=== PATIENT | male | born 1990 | race Native Hawaiian/Other Pacific Islander ===

== ENCOUNTER 2017-06-23 02:24 | Emergency (ER) | payer OTHER ==
[2017-06-23 02:35] VITALS: RESP 16
[2017-06-23] MEDS ORDERED: DIPH,PERTUS(ACELL)TETVAC-LF 0.5 ML VIAL IM ONE (02:44)
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
[2017-06-23 04:08] VITALS: BP 128/69; PULSE 72; TEMP 97.9
--- NOTE | 2017-06-23 04:44 | XR ---
EXAMINATION TYPE: Chest and left RIBS DATE OF EXAM: 06/23/2017 COMPARISON: NONE HISTORY: Left-sided rib pain TECHNIQUE: 6 views FINDINGS: Heart and mediastinum are normal. Lungs are clear of infiltrate. There is no sign of pleura l effusion or pneumothorax. The left ribs appear intact. I see no rib fracture. IMPRESSION: There is a slight thoracic dextroscoliosis. Otherwise normal chest. Normal left ribs.
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
--- NOTE | 2017-06-23 04:44 | CT ---
History headache. Neck pain. Comparison none. TECHNIQUE: Multiple axial sections were obtained of the brain with no contrast. Axial sections were obtained from the skull base to T1 vertebra with no contrast. FINDINGS: Ventricles and sulci appear normal. There is no mass effect nor midline shift. There is no sign of in tracranial hemorrhage. The calvarium is intact. There is significant soft tissue swelling over the fr ontal bone and more on the right side. I see no orbital fracture. There is soft tissue swelling of the scalp over the occipital bone. The cervical vertebra have normal spacing and alignment. Posterior elements are intact. Facet joints appear normal. There is no sign of a cervical spine fracture. The skull base appears intact. CONCLUSION: No intracranial abnormality. Frontal and occipital scalp hematomas. Negative CT scan of the cervical spine.
--- NOTE | 2017-06-23 08:52 | XR ---
EXAMINATION TYPE: XR Hip LT and AP Pelvis , ONE VIEW DATE OF EXAM ORDERED: 06/23/2017 HISTORY: Pain. COMPARISON: None. FINDINGS: Osseous structures about the pelvis are normal. No fracture or dislocation is seen. IMPRESSION: NO ACUTE OSSEOUS LESION.
--- NOTE | 2017-06-23 08:55 | XR ---
EXAMINATION TYPE: XR elbow complete RT , 3 VIEWS DATE OF EXAM ORDERED: 06/23/2017 HISTORY: Pain. COMPARISON: None. FINDINGS: No fracture, dislocation or joint effusion is seen. There is an olecranon spur. IMPRESSION: NO ACUTE OSSEOUS LESION.
--- NOTE | 2017-06-23 08:55 | XR ---
EXAMINATION TYPE: XR ribs LT w pa chest xray , 6 VIEWS DATE OF EXAM ORDERED: 06/23/2017 HISTORY: Pain. COMPARISON: None. FINDINGS: The lungs are overinflated but clear. Pleural spaces are clear. The heart is not enlarged. No displaced rib fracture is seen. No pneumothorax is evident. IMPRESSION: COPD.
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
== END 2017-06-23 04:08 | disposition home or self-care (01) ==
LOC: EC 02:24
DX: S06.0X0A Concussion without loss of consciousness, initial encounter (principal); S61.451A Open bite of right hand, initial encounter; S61.234A Puncture wound without foreign body of right ring finger without damage to nail, initial encounter; S20.212A Contusion of left front wall of thorax, initial encounter; S70.02XA Contusion of left hip, initial encounter; S50.01XA Contusion of right elbow, initial encounter; S00.83XA Contusion of other part of head, initial encounter; F10.129 Alcohol abuse with intoxication, unspecified; F17.200 Nicotine dependence, unspecified, uncomplicated; Z88.0 Allergy status to penicillin; Z88.5 Allergy status to narcotic agent; Z23 Encounter for immunization; Y04.1XXA Assault by human bite, initial encounter; Y04.0XXA Assault by unarmed brawl or fight, initial encounter
CPT/HCPCS: 70450; 70486; 72125; 73502; 90471; 90715; 99284

== ENCOUNTER 2020-12-05 19:56 | Observation (INO) | payer OTHER ==
[2020-12-05] MEDS ORDERED: HYDROmorphone 0.5 MG/0.5 ML SYRINGE IVP STA (20:19)
[2020-12-05] MEDS ORDERED: SODIUM CHLORIDE 0.9% 1,000 ML IV STA (20:19)
[2020-12-05] MEDS ORDERED: ONDANSETRON 4 MG/2 ML VIAL IVP STA (20:19)
--- NOTE | 2020-12-05 20:28 | ED ---
Abdominal Pain HPI - General Source: patient, family, EMS, RN notes reviewed Mode of arrival: EMS Limitations: no limitations <Wesley Hood - Last Filed: 12/05/20 22:19> <Hanna Loving - Last Filed: 12/10/20 14:40> - General Chief Complaint: Abdominal Pain Stated Complaint: Abd Pain Time Seen by Provider: 12/05/20 20:09 - History of Present Illness Initial Comments: This a 30-year-old male presents emergency with chief complaint of abdominal pain. Patient states his started a few R is ago. Patient states that he had a leave work early because of the pain in his abdomen. Patient states she started driving felt lightheaded and dizzy. Patient states he's had no prior abdominal surgeries no prior abdominal or GI issues. Patient has no dysuria no hematuria he does have slight nausea without vomiting no fevers or chills no cough or URI symptoms. (Wesley Hood) - Related Data Previous Rx's Medication Instructions Recorded Levofloxacin [Levaquin] 500 mg PO DAILY 10 Days #10 tab 12/07/20 Allergies Allergy/AdvReac Type Severity Reaction Status Date / Time ampicillin Allergy Unknown Verified 12/05/20 22:12 Penicillins Allergy Rash/Hives Verified 12/05/20 22:12 codeine AdvReac Nausea & Verified 12/05/20 22:12 Vomiting Review of Systems ROS Other: All systems not noted in ROS Statement are negative. <Wesley Hood - Last Filed: 12/05/20 22:19> ROS Other: All systems not noted in ROS Statement are negative. <Hanna Loving - Last Filed: 12/10/20 14:40> ROS Statement: Those systems with pertinent positive or pertinent negative responses have been documented in the HPI. Past Medical History Past Medical History: Asthma History of Any Multi-Drug Resistant Organisms: None Reported Additional Past Surgical History / Comment(s): hemmorhoid surgery Past Psychological History: No Psychological Hx Reported Smoking Status: Current every day smoker Past Alcohol Use History: Occasional Past Drug Use History: Marijuana <Wesley Hood - Last Filed: 12/05/20 22:19> General Exam Limitations: no limitations General appearance: alert, in no apparent distress Head exam: Present: atraumatic, normocephalic, normal inspection Eye exam: Present: normal appearance, PERRL, EOMI. Absent: scleral icterus, conjunctival injection, periorbital swelling ENT exam: Present: normal exam, mucous membranes moist Neck exam: Present: normal inspection, full ROM. Absent: tenderness, meningismu s, lymphadenopathy Respiratory exam: Present: normal lung sounds bilaterally. Absent: respiratory distress, wheezes, rales, rhonchi, stridor Cardiovascular Exam: Present: regular rate, normal rhythm, normal heart sounds. Absent: systolic murmur, diastolic murmur, rubs, gallop, clicks GI/Abdominal exam: Present: soft, tenderness, normal bowel sounds. Absent: distended, guarding, rebound, rigid Back exam: Absent: CVA tenderness (R), CVA tenderness (L) Neurological exam: Present: alert Skin exam: Present: warm, dry, intact, normal color. Absent: rash <Wesley Hood - Last Filed: 12/05/20 22:19> Course Vital Signs 12/05/20 12/05/20 12/05/20 20:06 20:54 22:34 Temperature 97.4 F L 97.5 F L Pulse Rate 71 77 62 Pulse Rate [ Right Lateral] Respiratory 20 22 22 Rate Blood Pressure 141/82 137/78 127/66 Blood Pressure [Right Radial Artery] O2 Sat by Pulse 100 98 97 Oximetry 12/05/20 12/06/20 12/06/20 23:00 04:40 07:00 Temperature 97.7 F 97.9 F Pulse Rate 69 56 L Pulse Rate [ 55 L Right Lateral] Respiratory 22 16 17 Rate Blood Pressure 124/73 126/79 Blood Pressure 124/68 [Right Radial Artery] O2 Sat by Pulse 97 97 97 Oximetry Medical Decision Making - Lab Data Result diagrams: 12/05/20 20:21 12/05/20 20:21 <Wesley Hood - Last Filed: 12/05/20 22:19> - Lab Data Result diagrams: 12/07/20 08:46 12/05/20 20:21 <Hanna Loving - Last Filed: 12/10/20 14:40> - Medical Decision Making 30-year-old presented for abdominal pain. Patient has a temperature changes and fluid collection on CT possible early appendicitis. Patient be admitted for IV antibiotics case discussed with Dr. Nava. (Wesley Hood) I was available for consultation in the emergency department. The history and physical exam were done by the midlevel provider. I was consulted for this patients care. I reviewed the case with the midlevel provider and based on their presentation of the patient, I agree with the assessment, medical decision making and plan of care as documented. Chart was dictated using [employer] dictation software. Attempts were made to correct any dictation errors however some typographical errors may persist. Patient was seen during a national state of emergency due to the Covid-19 pandemic. (Hanna Loving) - Lab Data Lab Results 12/05/20 12/05/20 12/05/20 Range/Units 20:21 20:21 20:21 WBC 8.2 (3.8-10.6) k/uL RBC 4.35 (4.30-5.90) m/uL Hgb 14.5 (13.0-17.5) gm/dL Hct 41.8 (39.0-53.0) % MCV 96.1 (80.0-100.0) fL MCH 33.4 (25.0-35.0) pg MCHC 34.7 (31.0-37.0) g/dL RDW 14.5 (11.5-15.5) % Plt Count 255 (150-450) k/uL MPV 7.9 Neutrophils % 65 % Lymphocytes % 23 % Monocytes % 6 % Eosinophils % 2 % Basophils % 1 % Neutrophils # 5.3 (1.3-7.7) k/uL Lymphocytes # 1.9 (1.0-4.8) k/uL Monocytes # 0.5 (0-1.0) k/uL Eosinophils # 0.1 (0-0.7) k/uL Basophils # 0.1 (0-0.2) k/uL Sodium 136 L (137-145) mmol/L Potassium 3.7 (3.5-5.1) mmol/L Chloride 105 (98-107) mmol/L Carbon Dioxide 24 (22-30) mmol/L Anion Gap 7 mmol/L BUN 18 (9-20) mg/dL Creatinine 0.76 (0.66-1.25) mg/dL Est GFR (CKD-EPI)AfAm >90 (>60 ml/min/1.73 sqM) Est GFR (CKD-EPI)NonAf >90 (>60 ml/min/1.73 sqM) Glucose 110 H (74-99) mg/dL Plasma Lactic Acid Jose (0.7-2.0) mmol/L Calcium 9.5 (8.4-10.2) mg/dL Total Bilirubin 0.8 (0.2-1.3) mg/dL AST 37 (17-59) U/L ALT 26 (4-49) U/L Alkaline Phosphatase 60 (38-126) U/L Total Protein 6.3 (6.3-8.2) g/dL Albumin 4.3 (3.5-5.0) g/dL Lipase 162 (23-300) U/L Urine Color Light Yellow Urine Appearance Clear (Clear) Urine pH 7.5 (5.0-8.0) Ur Specific [place] 1.031 (1.001-1.035) Urine Protein Negative (Negative) Urine Glucose (UA) Negative (Negative) Urine Ketones Negative (Negative) Urine Blood Negative (Negative) Urine Nitrite Negative (Negative) Urine Bilirubin Negative (Negative) Urine Urobilinogen <2.0 (<2.0) mg/dL Ur Leukocyte Esterase Negative (Negative) 12/05/20 Range/Units 20:21 WBC (3.8-10.6) k/uL RBC (4.30-5.90) m/uL Hgb (13.0-17.5) gm/dL Hct (39.0-53.0) % MCV (80.0-100.0) fL MCH (25.0-35.0) pg MCHC (31.0-37.0) g/dL RDW (11.5-15.5) % Plt Count (150-450) k/uL MPV Neutrophils % % Lymphocytes % % Monocytes % % Eosinophils % % Basophils % % Neutrophils # (1.3-7.7) k/uL Lymphocytes # (1.0-4.8) k/uL Monocytes # (0-1.0) k/uL Eosinophils # (0-0.7) k/uL Basophils # (0-0.2) k/uL Sodium (137-145) mmol/L Potassium (3.5-5.1) mmol/L Chloride (98-107) mmol/L Carbon Dioxide (22-30) mmol/L Anion Gap mmol/L BUN (9-20) mg/dL Creatinine (0.66-1.25) mg/dL Est GFR (CKD-EPI)AfAm (>60 ml/min/1.73 sqM) Est GFR (CKD-EPI)NonAf (>60 ml/min/1.73 sqM) Glucose (74-99) mg/dL Plasma Lactic Acid Jose 1.5 (0.7-2.0) mmol/L Calcium (8.4-10.2) mg/dL Total Bilirubin (0.2-1.3) mg/dL AST (17-59) U/L ALT (4-49) U/L Alkaline Phosphatase (38-126) U/L Total Protein (6.3-8.2) g/dL Albumin (3.5-5.0) g/dL Lipase (23-300) U/L Urine Color Urine Appearance (Clear) Urine pH (5.0-8.0) Ur Specific [place] (1.001-1.035) Urine Protein (Negative) Urine Glucose (UA) (Negative) Urine Ketones (Negative) Urine Blood (Negative) Urine Nitrite (Negative) Urine Bilirubin (Negative) Urine Urobilinogen (<2.0) mg/dL Ur Leukocyte Esterase (Negative) Disposition <Wesley Hood - Last Filed: 12/05/20 22:19> <Hanna Loving - Last Filed: 12/10/20 14:40> Clinical Impression: Acute appendicitis Disposition: ADMITTED IP TO THIS HOSP Condition: Stable
[2020-12-05 20:36] LABS: Basophils # (A) 0.1 k/uL (0-0.2); Basophils % (A) 1 %; Eosinophils # (A) 0.1 k/uL (0-0.7); Eosinophils % (A) 2 %; HCT 41.8 % (39.0-53.0); HGB 14.5 gm/dL (13.0-17.5); Lymphocytes # (A) 1.9 k/uL (1.0-4.8); Lymphocytes % (A) 23 %; MCH 33.4 pg (25.0-35.0); MCHC 34.7 g/dL (31.0-37.0); MCV 96.1 fL (80.0-100.0); Mean Platelet Volume 7.9; Monocytes # (A) 0.5 k/uL (0-1.0); Monocytes % (A) 6 %; Neutrophils # (A) 5.3 k/uL (1.3-7.7); Neutrophils % (A) 65 %; Platelet Count 255 k/uL (150-450); RBC 4.35 m/uL (4.30-5.90); RDW 14.5 % (11.5-15.5); WBC 8.2 k/uL (3.8-10.6)
[2020-12-05 20:48] LABS: ALT 26 U/L (4-49); AST 37 U/L (17-59); African American GFR (CKD) >90 (>60 ml/min/1.73 sqM); Albumin 4.3 g/dL (3.5-5.0); Alkaline Phosphatase 60 U/L (38-126); Anion Gap 7 mmol/L; Blood Urea Nitrogen 18 mg/dL (9-20); Calcium 9.5 mg/dL (8.4-10.2); Carbon Dioxide 24 mmol/L (22-30); Chloride 105 mmol/L (98-107); Glucose 110 mg/dL (74-99); Lipase 162 U/L (23-300); Non-African American GFR(CKD) >90 (>60 ml/min/1.73 sqM); Sodium 136 mmol/L (137-145); Total Bilirubin 0.8 mg/dL (0.2-1.3); Total Protein 6.3 g/dL (6.3-8.2)
[2020-12-05 20:51] LABS: Potassium 3.7 mmol/L (3.5-5.1)
--- NOTE | 2020-12-05 21:46 | CT ---
EXAMINATION TYPE: CT abdomen pelvis w con DATE OF EXAM: 12/05/2020 COMPARISON: None HISTORY: abdominal pain CT DLP: 743.5 mGycm Automated exposure control for dose reduction was used. CONTRAST: Performed with IV Contrast, patient injected with 100 mL of Isovue 300. Lung bases are clear. There is no pleural effusion. Heart size is normal. There is no pericardial eff usion. Liver spleen stomach pancreas gallbladder appear normal. The bile ducts are not dilated. There is no adrenal mass. Kidneys show satisfactory contrast opacification. There is no hydronephrosi s. There is no retroperitoneal adenopathy. Ureters are not dilated. Delayed images show normal renal excretion. Bladder distends smoothly. There is no inguinal hernia. There is no free fluid in the pelv is. There is some minimal fat stranding in the right paracolic gutter. Appendix is not clearly seen. There is no ascites or free air. There is no sign of a bowel obstruction. Small bowel pattern is norm al. Lumbar vertebra have normal alignment. Posterior elements are intact. There is no compression fra cture. Bony pelvis is intact. The hip joints are intact. IMPRESSION: There is some fat stranding and fluid and consistent with some inflammatory changes in the right late ral abdomen. Appendix not seen. Appendicitis not excluded. No renal stone or obstruction. No sign of inflammatory bowel disease.
[2020-12-05 22:05] LABS: Appearance,Urine Clear (Clear); Bilirubin,Urine Negative (Negative); Blood,Urine Negative (Negative); Color,Urine Light Yellow; Glucose,Urine (UA) Negative (Negative); Ketones,Urine Negative (Negative); Leukocyte Esterase,Urine Negative (Negative); Nitrite,Urine Negative (Negative); PH, Urine 7.5 (5.0-8.0); Protein,Urine Negative (Negative); Specific Gravity,Urine 1.031 (1.001-1.035); Urobilinogen,Urine <2.0 mg/dL (<2.0)
[2020-12-05] MEDS ORDERED: metroNIDAZOLE-NS PMX 500 MG in SALINE 1 100ML.BAG IVPB STA (22:19)
[2020-12-05] MEDS ORDERED: HYDROmorphone 0.5 MG/0.5 ML SYRINGE IVP PRN (22:20)
[2020-12-05] MEDS ORDERED: NALOXONE 0.4 MG/ML 1 ML VIAL IV PRN (22:20)
[2020-12-05] MEDS ORDERED: KETOROLAC 15 MG/ML 1 ML VIAL IVP PRN (22:20)
[2020-12-05] MEDS ORDERED: ONDANSETRON 4 MG/2 ML VIAL IVP PRN (22:21)
[2020-12-05] MEDS: SODIUM CHLORIDE 0.9% 1,000 ML IV SCH (22:32)
[2020-12-06] MEDS: metroNIDAZOLE-NS PMX 500 MG in SALINE 1 100ML.BAG IVPB SCH ×3 (09:30→23:26)
[2020-12-06] MEDS: SODIUM CHLORIDE 0.9% 1,000 ML IV SCH (09:31)
[2020-12-07] MEDS: SODIUM CHLORIDE 0.9% 1,000 ML IV SCH ×2 (01:40→07:13)
[2020-12-07 02:51] VITALS: RESP 16
[2020-12-07] MEDS: metroNIDAZOLE-NS PMX 500 MG in SALINE 1 100ML.BAG IVPB SCH (07:12)
[2020-12-07 08:31] VITALS: BP 120/72; PULSE 56; TEMP 97.9
[2020-12-07 09:09] LABS: Basophils # (A) 0.1 k/uL (0-0.2); Basophils % (A) 1 %; Eosinophils # (A) 0.1 k/uL (0-0.7); Eosinophils % (A) 3 %; HGB 14.6 gm/dL (13.0-17.5); Lymphocytes # (A) 1.3 k/uL (1.0-4.8); Lymphocytes % (A) 26 %; MCH 32.9 pg (25.0-35.0); MCHC 34.8 g/dL (31.0-37.0); MCV 94.6 fL (80.0-100.0); Mean Platelet Volume 6.8; Monocytes # (A) 0.3 k/uL (0-1.0); Monocytes % (A) 6 %; Neutrophils # (A) 2.9 k/uL (1.3-7.7); Neutrophils % (A) 60 %; Platelet Count 276 k/uL (150-450); RBC 4.44 m/uL (4.30-5.90); RDW 13.6 % (11.5-15.5); WBC 4.8 k/uL (3.8-10.6)
--- NOTE | 2020-12-07 09:24 | P.GSHP ---
History of Present Illness H&P Date: 12/07/20 Chief Complaint: Right lower quadrant pain Patient percent emergency room with complaints of right lower quadrant pain. His CAT scan shows some evidence of some mild inflammation right lower quadrant. Patient states pain is improved overnight. Past Medical History Past Medical History: Asthma History of Any Multi-Drug Resistant Organisms: None Reported Additional Past Surgical History / Comment(s): hemmorhoid surgery Past Anesthesia/Blood Transfusion Reactions: No Reported Reaction Past Psychological History: No Psychological Hx Reported Smoking Status: Current every day smoker Past Alcohol Use History: Occasional Past Drug Use History: Marijuana - Past Family History Mother Family Medical History: No Reported History Medications and Allergies Home Medications Medication Instructions Recorded Confirmed Type No Known Home Medications 12/05/20 12/05/20 History Allergies Allergy/AdvReac Type Severity Reaction Status Date / Time ampicillin Allergy Unknown Verified 12/05/20 22:12 Penicillins Allergy Rash/Hives Verified 12/05/20 22:12 codeine AdvReac Nausea & Verified 12/05/20 22:12 Vomiting Surgical - Exam Vital Signs Temp Pulse Resp BP Pulse Ox 97.4 F L 71 20 141/82 100 12/05/20 20:06 12/05/20 20:06 12/05/20 20:06 12/05/20 20:06 12/05/20 20:06 - General well developed, well nourished, no distress - Eyes PERRL - ENT normal pinna - Neck no masses - Respiratory normal expansion - Cardiovascular Rhythm: regular - Abdomen Abdomen: soft, non tender Results - Labs 12/07/20 08:46 12/05/20 20:21 Assessment and Plan Assessment: Resolving right lower quadrant pain. Patient will be observed. If his pain is improved he will be discharged home tomorrow.
--- NOTE | 2020-12-07 14:02 | P.DS ---
Providers Date of admission: 12/05/20 22:28 Expected date of discharge: 12/07/20 Attending physician: Darek Nava Primary care physician: Stated None Hospital Course: Discharge diagnosis 1. Right lower quadrant abdominal pain possibly related to viral infection. Has shown improvement. Hospital course Patient is a 30-year-old male. He presented to the emergency room with complaints of right lower quadrant pain. His CAT scan shows some evidence of some mild inflammation right lower quadrant. Patient seen and examined by surgeon. [place] that symptoms related to a possible viral infection. He did not feel that the patient had an an acute appendicitis at this time. Patient has been afebrile. White count is normal. Patient's pain has improved with antibiotics. He is tolerating diet. He is up and ambulating. He is having bowel movements. He is stable for discharge. Please refer to chart for any further details. Physician Guest Experience Captain note has been reviewed by physician. Signing provider agrees with the documented findings, assessment, and plan of care. Patient Condition at Discharge: Stable Plan - Discharge Summary Discharge Rx Participant: No New Discharge Prescriptions: New Levofloxacin [Levaquin] 500 mg PO DAILY 10 Days #10 tab Discharge Medication List Levofloxacin [Levaquin] 500 mg PO DAILY 10 Days #10 tab 12/07/20 [Rx] Follow up Appointment(s)/Referral(s): Yuriy Crow MD [STAFF PHYSICIAN] - 1-2 days Darek Nava MD [STAFF PHYSICIAN] - 1 Week Activity/Diet/Wound Care/Special Instructions: Diet regular Discharge Disposition: HOME SELF-CARE
== END 2020-12-07 14:23 | disposition home or self-care (01) ==
LOC: EC 19:56 → 6NMEDSUR 22:28
PROVIDERS: ADMIT Surgery; ATTEND Surgery
DX: R10.31 Right lower quadrant pain (principal); F17.200 Nicotine dependence, unspecified, uncomplicated; J45.909 Unspecified asthma, uncomplicated
CPT/HCPCS: 96361 ×2; 96366 ×2; 96365; 96367; 96375; 99285; 36415; 93005; 80053; 83605; 83690; 85025 ×2; 81003; 74177; G0378 ×3; J2405; J0696 ×2; J1170; Q9967

== ENCOUNTER 2022-07-23 17:42 | Emergency (ER) | payer OTHER ==
--- NOTE | 2022-07-23 17:48 | ED ---
General Adult HPI <Ana Dickens - Last Filed: 07/23/22 17:47> <Shayy Recinos - Last Filed: 07/23/22 19:22> - General Stated complaint: lt knee swelling Time Seen by Provider: 07/23/22 17:47 - History of Present Illness Initial comments: 32-year-old male presents to the emergency department with a chief complaint of left knee pain. Patient denies any history of trauma or falls (Ana Dickens) Patient is a 32-year-old male presenting with chief complaint of left knee swelling. Patient states and has been ongoing for a few days. Patient admits to no injury or trauma, started bothering him after repetitive kneeling. He states that there is some discomfort due to the tension from the swelling. No fever, chills, erythema, red streaking, numbness, tingling, weakness. (Shayy Washington) - Related Data Previous Rx's Medication Instructions Recorded Levofloxacin [Levaquin] 500 mg PO DAILY 10 Days #10 tab 12/07/20 Allergies Allergy/AdvReac Type Severity Reaction Status Date / Time ampicillin Allergy Unknown Verified 07/23/22 17:56 Penicillins Allergy Rash/Hives Verified 07/23/22 17:56 codeine AdvReac Nausea & Verified 07/23/22 17:56 Vomiting Review of Systems ROS Other: All systems not noted in ROS Statement are negative. <Ana Dickens - Last Filed: 07/23/22 17:47> ROS Other: All systems not noted in ROS Statement are negative. <Shayy Recinos - Last Filed: 07/23/22 19:22> ROS Statement: Those systems with pertinent positive or pertinent negative responses have been documented in the HPI. Past Medical History Past Medical History: Asthma History of Any Multi-Drug Resistant Organisms: None Reported Additional Past Surgical History / Comment(s): hemmorhoid surgery Past Anesthesia/Blood Transfusion Reactions: No Reported Reaction Past Psychological History: No Psychological Hx Reported Smoking Status: Current every day smoker Past Alcohol Use History: Occasional Past Drug Use History: Marijuana - Past Family History Mother Family Medical History: No Reported History <Ana Dickens - Last Filed: 07/23/22 17:47> General Exam <Ana Dickens - Last Filed: 07/23/22 17:47> Limitations: no limitations General appearance: alert, in no apparent distress Head exam: Present: atraumatic, normocephalic, normal inspection Eye exam: Present: normal appearance, EOMI. Absent: periorbital swelling Neck exam: Present: normal inspection, full ROM Left Knee exam: Present: full ROM, swelling. Absent: tenderness Neurological exam: Present: alert, oriented X3, CN II-XII intact Psychiatric exam: Present: normal affect, normal mood Skin exam: Present: warm, dry, intact, normal color. Absent: rash <Shayy Recinos - Last Filed: 07/23/22 19:22> - General Exam Comments Initial Comments: Visual Physical Exam Vital signs reviewed General: Well-appearing, nontoxic, no acute distress. Head: Normocephalic, atraumatic Eyes: PERRLA, EOMI ENT: Airway patent Chest: Nonlabored breathing Skin: No visual rash, normal skin tone Neuro: Alert and oriented 3 Musculoskeletal: No gross abnormalities (Ana Dickens) Course Vital Signs 07/23/22 17:54 Temperature 98 F Pulse Rate 60 Respiratory 18 Rate Blood Pressure 146/87 O2 Sat by Pulse 98 Oximetry Medical Decision Making <Shayy Recinos - Last Filed: 07/23/22 19:22> - Medical Decision Making Was pt. sent in by a medical professional or institution ([facility] Bruce, LOG POND WORKER, urgent care, hospital, or care home...) When possible be specific @ -No Did you speak to anyone other than the patient for history (EMS, parent, family, police, friend...)? What history was obtained from this source @ -No Did you review nursing and triage notes (agree or disagree)? Why? @ -I reviewed and agree with nursing and triage notes Were old charts reviewed (outside hosp., previous admission, EMS record, old EKG, old radiological studies, urgent care reports/EKG's, care home records)? Report findings @ -No old charts were reviewed Differential Diagnosis (chest pain, altered mental status, abdominal pain women, abdominal pain men, vaginal bleeding, weakness, fever, dyspnea, syncope, headache, dizziness, GI bleed, back pain, seizure, CVA, palpatations, mental health, musculoskeletal)? @ -Differential Musculoskeletal Muscular strain, contusion, ligament sprain, fracture, arthritis, septic arthritis, bursitis, cellulitis, muscle spasm, nerve compression, DVT, arterial occlusion, herpes zoster, electrolyte abnormality, tumor.... This is not meant to be in all inclusive list EKG interpreted by me (3pts min.). @ -As above X-rays interpreted by me (1pt min.). @ -X-ray shows no evidence of fracture or dislocation CT interpreted by me (1pt min.). @ -None done U/S interpreted by me (1pt. min.). @ -None done What testing was considered but not performed or refused? (CT, X-rays, U/S, labs)? Why? @ -None What meds were considered but not given or refused? Why? @ -None Did you discuss the management of the patient with other professionals (professionals i.e. , PA, LOG POND WORKER, lab, RT, psych nurse, social insurance administrator, repairer handtools, teacher, mobile patrol officer, case loader operator)? Give summary @ -No Was smoking cessation discussed for >3mins.? @ -No Was critical care preformed (if so, how long)? @ -No Were there social determinants of health that impacted care today? How? (Homelessness, low income, unemployed, alcoholism, drug addiction, transportation, low edu. Level, literacy, decrease access to med. care, [facility], rehab)? @ -No Was there de-escalation of care discussed even if they declined (Discuss DNR or withdrawal of care, Hospice)? DNR status @ -No What co-morbidities impacted this encounter? (DM, HTN, Smoking, COPD, CAD, Cancer, CVA, ARF, Chemo, Hep., AIDS, mental health diagnosis, sleep apnea, morbid obesity)? @ -None Was patient admitted / discharged? Hospital course, mention meds given and route, prescriptions, significant lab abnormalities, going to OR and other pertinent info. @ -Patient is a 32-year-old male presenting with chief complaint of left knee swelling. No injury, does admit to a bothering him after he was kneeling. On physical examination there is no sign of erythema or warmth, there is swelling noted over the anterior portion of the knee. No tenderness. X-ray shows no fracture or dislocation. Appears consistent with bursitis. Does not appear to be infected. Patient is a UA on supportive treatment with rest, ice, compression, elevation and NSAIDs. Follow-up with PCP. Report back to ER with any new or worsening symptoms. Discussed return parameters and answered all questions. Patient conveyed verbal understanding and agreed to the plan. I discussed this case in detail with my attending Dr. Ritter Undiagnosed new problem with uncertain prognosis? @ -No Drug Therapy requiring intensive monitoring for toxicity (Heparin, Nitro, Insulin, Cardizem)? @ -No Were any procedures done? @ -No Diagnosis/symptom? @ -Bursitis Acute, or Chronic, or Acute on Chronic? @ -Acute Uncomplicated (without systemic symptoms) or Complicated (systemic symptoms)? @ -Uncomplicated Side effects of treatment? @ -No Exacerbation, Progression, or Severe Exacerbation? @ -No Poses a threat to life or bodily function? How? (Chest pain, [place], [place], pneumonia, PE, COPD, DKA, ARF, appy, cholecystitis, CVA, Diverticulitis, Homicidal, Suicidal, threat to staff... and all critical care pts) @ -No (Shayy Recinos) Disposition <Ana Dickens - Last Filed: 07/23/22 17:47> Is patient prescribed a controlled substance at d/c from ED?: No Time of Disposition: 19:04 <Shayy Recinos - Last Filed: 07/23/22 19:22> Clinical Impression: Bursitis Disposition: HOME SELF-CARE Condition: Good Instructions (If sedation given, give patient instructions): Knee Bursitis (ED) Additional Instructions: Follow-up with PCP. Report back to ER with any new or worsening symptoms. Rest, ice, compress, and elevate the knee. Take Motrin and Tylenol as needed. Referrals: None,Stated [Primary Care Provider] - 1-2 days
[2022-07-23 17:56] VITALS: PULSE 60
--- NOTE | 2022-07-23 18:44 | XR ---
EXAMINATION TYPE: XR knee complete LT DATE OF EXAM: 07/23/2022 COMPARISON: None HISTORY: Knee pain TECHNIQUE: 3 view left knee FINDINGS: Joint space appears preserved. No significant joint effusion is radiographically apparent. There is prominent soft tissue swelling anterior to the patella. No acute fracture or dislocation is evident. Follow up exams can be performed 7-10 days from acute trauma for continued pain. IMPRESSION: 1. Superficial soft tissue swelling anterior to the patella. 2. No obvious joint effusion evident. 3. No acute osseous abnormality.
[2022-07-23 20:03] VITALS: BP 140/82; RESP 16; TEMP 98.6
== END 2022-07-23 20:00 | disposition home or self-care (01) ==
LOC: EC 17:42
DX: M70.52 Other bursitis of knee, left knee (principal); J45.909 Unspecified asthma, uncomplicated; F17.200 Nicotine dependence, unspecified, uncomplicated; F12.90 Cannabis use, unspecified, uncomplicated; Z88.0 Allergy status to penicillin; Z88.8 Allergy status to other drugs, medicaments and biological substances
CPT/HCPCS: 99283

== ENCOUNTER → 2024-07-27 | Outpatient (CLI) | payer OTHER ==
--- NOTE | 2024-07-27 19:04 | CT ---
EXAMINATION TYPE: CT elbow RT wo con DATE OF EXAM: 07/27/2024 5:49 PM COMPARISON: Extremity radiograph same day. 06/15/2017 CLINICAL INDICATION: Male, 34 years old with history of S52.021A FX OF OLECRAN PRO W/O INTARTIC EXTN RIGHT; PHH, Pain in right elbow TECHNIQUE: Axial images were obtained of the CT elbow RT wo con, Additional coronal and sagittal refo rmatted images and soft tissue and bone window were obtained for review. 3-D reconstruction was creat ed on a separate workstation. Contrast used: mL of , (None if empty) Oral contrast used: (None if empty) CT DLP: 187.2 mGycm, Automated exposure control for dose reduction was used. FINDINGS: Heterogenous calcifications at the insertion of the triceps tendon on the olecranon. No radiopaque fo reign bodies. There our osteophytes of the coronoid process with joint space narrowing of the particu larly involving the trochlear groove and olecranon. No evidence of fracture. No significant soft tiss ue swelling. No evidence for joint effusion. IMPRESSION: 1. No evidence of fracture. 2. Moderate degeneration changes for patient's age particularly olecranon process which could be com patible with history of prior olecranon process fracture. Findings are not significantly changed from plain film on 06/23/2017 given differences in technique. [facility], , 07/27/2024 7:02 PM
== END | disposition home or self-care (01) ==
LOC: RADCTMAIN 17:19
PROVIDERS: ATTEND Orthopaedic Surgery
DX: S52.021A Displaced fracture of olecranon process without intraarticular extension of right ulna, initial encounter for closed fracture (principal); M19.021 Primary osteoarthritis, right elbow